=== PATIENT | female | born 1990 | race African-American/Black ===

== ENCOUNTER 2016-05-23 14:06 | Emergency (ER) | payer SELFPAY ==
[~2016-05-23 14:06] MED LIST: COLACE100 MG PO; DULCOLAX10 MG/SUPP RC; FEOSOL1 TAB PO; IRON SUPPLEMEN325 MG PO; MAALOX SUSPENSI30 ML PO; MILK OF MA400 MG/5 M PO; MOTRIN800 MG PO; NORCO 5/325 TAB1 TAB PO; PERCOCET 5/3251 TAB PO; PRENATAL1 EACH PO; SENNA PLUS TAB1 EACH PO; VENTOLIN HFA18 GM IH; ZITHROMAX250 MG PO; ZITHROMAX500 MG PO
[2016-05-23 16:01] LABS: URINE BILIRUBIN NEGATIVE (NEG); URINE BLOOD NEGATIVE (NEG); URINE GLUCOSE (UA) NEGATIVE (NEG); URINE KETONE NEGATIVE (NEG); URINE LEUKOCYTE ESTERASE NEGATIVE (NEG); URINE NITRITE NEGATIVE (NEG); URINE PROTEIN NEGATIVE (NEG)
[2016-05-23 16:02] LABS: URINE APPEARANCE CLOUDY; URINE COLOR PALE YELLOW
[2016-05-23] MEDS ORDERED: FLAGYL500 M1 PO (16:22)
== END 2016-05-23 16:39 ==
LOC: EDMED 14:06
PROVIDERS: Emergency Medicine
PROC: 0UPD7HZ Removal of Contraceptive Device from Uterus and Cervix, Via Natural or Artificial Opening (ICD-10-PCS; principal; 2016-05-23)
DX: N76.0 Acute vaginitis (principal); F17.210 Nicotine dependence, cigarettes, uncomplicated

== ENCOUNTER 2016-06-27 13:40 | Emergency (ER) | payer SELFPAY ==
[~2016-06-27 13:40] MED LIST changes: +FLAGYL500 M1 PO
[2016-06-27] MEDS ORDERED: PRENATAL VITAM1 EA12 PO (14:42)
[2016-06-27] MEDS ORDERED: MULTIVITAMINS1 EAC6 PO (14:42)
[2016-06-27] MEDS ORDERED: HAIR, SKIN & N1 EAC2 PO (14:43)
[2016-06-27 14:45] LABS: BASO % 0.3 % (0-2); EOS % 1.6 % (0-7); EOSINOPHIL ABSOLUTE COUNT 0.1 tho/cmm (0.0-0.7); HCT-HEMATOCRIT 41.7 % (34.0-49.0); HGB-HEMOGLOBIN 13.9 gm/dl (12.0-15.5); IMMATURE GRANULOCYTES ABSOLUTE 0.01 tho/cmm (0-0.03); IMMATURE GRANULOCYTES PERCENT 0.2 % (0-0.3); LYMPH % 42.5 % (20-45); LYMPH ABSOLUTE COUNT 2.6 tho/cmm (0.8-4.5); MCH (MEAN CORPUSCULAR HGB) 28.4 pg (28.0-32.0); MCHC MEAN CORPUSCULAR HGB CONC 33.3 % (32.0-36.0); MCV (MEAN CELL VOLUME) 85.1 fl (82.0-96.0); MEAN PLATELET VOLUME 8.6 cmc (9.4-12.4); MONO % 3.9 % (0-12); MONOCYTE ABSOLUTE COUNT 0.2 tho/cmm (0.0-1.2); NEUTROPHIL ABSOLUTE COUNT 3.2 tho/cmm (1.6-8.0); NEUTROPHIL-AUTOMATED 3.2 tho/cmm (1.6-8.0); NEUTROPHILS % 51.5 % (40-80); PLATELET COUNT 362 tho/cmm (150-450); RED CELL DISTRIBUTION WIDTH 13.6 % (12.4-16.4); WHITE BLOOD COUNT 6.2 tho/cmm (4.0-10.0)
[2016-06-27 16:36] LABS: URINE BILIRUBIN NEGATIVE (NEG); URINE BLOOD NEGATIVE (NEG); URINE GLUCOSE (UA) NEGATIVE (NEG); URINE KETONE NEGATIVE (NEG); URINE LEUKOCYTE ESTERASE NEGATIVE (NEG); URINE NITRITE NEGATIVE (NEG); URINE PROTEIN NEGATIVE (NEG); URINE SPECIFIC GRAVITY 1.005 (1.003-1.030)
[2016-06-27 16:37] LABS: URINE APPEARANCE CLEAR; URINE COLOR YELLOW
[2016-06-27] MEDS ORDERED: FLAGYL500 M1 PO (17:20)
== END 2016-06-27 18:04 ==
LOC: EDMED 13:40
PROVIDERS: Emergency Medicine
DX: N76.0 Acute vaginitis (principal); J45.909 Unspecified asthma, uncomplicated; Z91.030 Bee allergy status; Z87.891 Personal history of nicotine dependence; Z88.8 Allergy status to other drugs, medicaments and biological substances
CPT/HCPCS: J0696